=== PATIENT | female | born 1975 | race Two or more races ===

== ENCOUNTER 2018-04-06 15:17 | Inpatient (IN) | payer BC ==
[~2018-04-06] VITALS: Ht 165.1 cm; Wt 56.7 kg
[2018-04-06] MEDS ORDERED: SPIRONOLACTONE PO (15:30)
[2018-04-09] MEDS ORDERED: INTEGRA PLUS C1 EACH PO (18:53)
[2018-04-09] MEDS ORDERED: FOLTRATE TABLE1 EACH PO (18:55)
== END 2018-04-09 20:30 | disposition home or self-care (01) | DRG 812 ==
LOC: ER 15:17 → SEC-K 21:40 → MEDJ 04-07 02:17
PROC: 30233N1 Transfusion of Nonautologous Red Blood Cells into Peripheral Vein, Percutaneous Approach (ICD-10-PCS; principal; 2018-04-06)
DX: D50.8 Other iron deficiency anemias (principal); G43.809 Other migraine, not intractable, without status migrainosus